=== PATIENT | female | born 1975 | race Caucasian/White ===

== ENCOUNTER 2019-05-13 18:45 | Emergency (ER) | payer BC ==
[~2019-05-13] VITALS: Ht 175.3 cm; Wt 111.1 kg
== END 2019-05-13 22:09 | disposition home or self-care (01) ==
LOC: ED 18:45
DX: S82.142A Displaced bicondylar fracture of left tibia, initial encounter for closed fracture (principal); V03.90XA Pedestrian on foot injured in collision with car, pick-up truck or van, unspecified whether traffic or nontraffic accident, initial encounter
CPT/HCPCS: 73560; 73700; 99284-25; A9270

== ENCOUNTER 2020-08-17 09:00 | Day surgery (SDC) | payer BC ==
[~2020-08-17] VITALS: Ht 175.3 cm; Wt 100.0 kg
[~2020-08-17 09:00] MED LIST: IBUPROFEN200 MG PO; MULTI COMPLETE1 EACH PO
--- NOTE | 2020-08-17 12:56 | NUR ---
08/17/20 1256 Cady Villarreal 1230 PT ARRIVED IN PACU SLEEPY WITH NO C/O'S. [address] AT BEDSIDE TALKING WITH PT. ALL QUESTIONS ANSWERED.
--- NOTE | 2020-08-17 13:21 | NUR ---
1305: PT ARRIVES TO DS RM 6 FROM PACU DROWSY. PT RATES PAIN 2/10 AND STATES THAT "MOSTLY MY THROAT HURTS." PT STATES FEELING NAUSEA AFTER MOVEMENT OF STRETCHER TO DS FROM PACU; SEE EMAR. PT PROVIDED WATER, TOLERATES SMALL SIP. PT STATES BEING COLD, MAYITO HUGGER PLACED ON WARM AND TUCKED UNDER BLANKETS. CALL LIGHT WITHIN REACH, ENCOURAGED TO USE WITH ANY NEEDS.
[2020-08-17] MEDS ORDERED: HYDROCODON-ACE1 EAC8 PO (13:44)
--- NOTE | 2020-08-17 14:16 | NUR ---
CRACKERS AND SOUP GIVEN. CALL LIGHT REMAINS WITHIN REACH.
--- NOTE | 2020-08-17 14:42 | NUR ---
PATIENT IS SITTING UP IN BED, EATING HER SOUP. SHE IS TOLERATING THAT WELL.
--- NOTE | 2020-08-18 06:29 | OR ---
[facility] [address] [place], [place] [address] Signed DATE OF OPERATION: 08/17/2020 SURGEON: Michelle Minor MD PREOPERATIVE DIAGNOSES: 1. Two lipomas, right forearm. 2. Three lipomas, right flank. POSTOPERATIVE DIAGNOSES: 1. Two lipomas, right forearm. 2. Three lipomas, right flank. PROCEDURE: Excision of five lipomas. ESTIMATED BLOOD LOSS: None. INDICATIONS: Emily is a 45-year-old female, who was asked to see me for multiple subcutaneous masses. They are most consistent with lipomas. Apparently, she has had lipomas removed in the past. She has two in the right forearm, and then three on her right flank. I explained to her that it is a bit much to do under local anesthetic. They do have some size too, one is pushing 3 cm, other probably at least 2 cm in diameter. We decided we do it over in the operating room with LMA anesthesia with the addition of local anesthetic. She understands the nature of the incisions required to remove the lipoma. She knows there is risk including, but not limited to bleeding, infection, scarring, change in contour of the skin as well as recurrent lipomas in the same or other locations. She had expressed understanding and wished to proceed. DESCRIPTION OF PROCEDURE: I met with Emily and her in the preop area. With our nurse in the room, then we marked all five lipomas. She had an additional third lipoma over the right paraspinal muscle, but intraoperatively we could not find that and we thought maybe that was just bone. After we marked the lipoma, she was taken into the operating room and placed under general LMA anesthesia. She was turned into the left lateral decubitus position with appropriate padding and monitoring. She had been given preoperative antibiotics along with subcutaneous heparin. SCDs have been utilized. We made three incisions in the right flank area and removed three lipomas. Each wound had been injected with local anesthetic. The wounds were irrigated and suctioned out until Electronically Signed By: MICHELLE MINOR MD 08/18/20 0629 PATIENT NAME: EMILY PARISI OPERATIVE REPORT DATE OF : 79 REPORT #: [id number] PHYSICIAN: MICHELLE MINOR MD PCP: CAMILLA HASSAN PA-C REPORT IS CONFIDENTIAL AND NOT TO BE RELEASED WITHOUT AUTHORIZATION [facility] [address] [place], [place] [address] Signed clear. We closed the dermis with interrupted 3-0 subcuticular Monocryl sutures. A 5-0 fast absorbing plain gut suture was used to reapproximate the skin edges. Dry gauze and tape were then applied. We had searched very carefully over the right paraspinal muscle, and we simply could find that third lipoma she had pointed out to me earlier, although we had marked three separate areas. We thought maybe this was bone from the vertebral column. After this, Emily was rotated into the supine position and her entire right upper extremity was prepped and draped in the usual sterile fashion, clear out to the fingertips. Again, we used incision over each lipoma and removed each lipoma separately. Local anesthetic had been injected into the wounds. The skin edges were reapproximated with 5-0 subcuticular Monocryl sutures. The skin edges were reapproximated with a running 5-0 fast absorbing plain gut suture. Dry gauze and tape were applied to both incisions on her right arm. After this, Emily was awakened from her anesthesia, extubated in the OR, and taken to the recovery room in stable condition. Michelle Minor MD ALB/MODL /[id number] cc: Michelle Minor MD Copies: MICHELLE MINOR MD ~ Electronically Signed By: MICHELLE MINOR MD 08/18/20 0629 PATIENT NAME: EMILY PARISI OPERATIVE REPORT DATE OF : 79 REPORT #: [id number] PHYSICIAN: MICHELLE MINOR MD PCP: CAMILLA HASSAN PA-C REPORT IS CONFIDENTIAL AND NOT TO BE RELEASED WITHOUT AUTHORIZATION
--- NOTE | 2020-08-19 11:19 | PATH ---
[facility] [address] [place], [place] [address] Signed SPECIMEN(S): A RIGHT RIBCAGE SPECIMEN(S): B RIGHT PARASPINAL LUMBAR AREA SPECIMEN(S): C RIGHT FOREARM, VOLAR SURFACE SPECIMEN(S): D RIGHT LATERAL FOREARM SPECIMEN SOURCE: A. RIGHT RIBCAGE B. RIGHT PARASPINAL LUMBAR AREA C. RIGHT FOREARM, VOLAR SURFACE D. RIGHT LATERAL FOREARM CLINICAL HISTORY: A-D) Masses/lipomas; excise right forearm lipomas x 2 right flank x 3. FINAL PATHOLOGIC DIAGNOSIS: A. Subcutaneous mass, right rib cage, excision: - Lipoma. B. Subcutaneous mass, right paraspinal lumbar area, excision: - Fragments of lobulated mature fibroadipose tissue, compatible with lipoma. C. Subcutaneous mass, volar surface right forearm, excision: - Angiolipoma. D. Subcutaneous mass, lateral right forearm, excision: - Angiolipoma. NAL:cml:[id number] MICROSCOPIC EXAMINATION: Histologic sections of all submitted blocks are examined by light microscopy. These findings, together with the gross examination, support the pathologic diagnosis. GROSS DESCRIPTION: Four specimens are received in four containers, labeled "CH." A. The specimen, labeled "CH," and designated on the requisition "right ribcage subcutaneous mass," is received in formalin and consists of a portion of yellow-duncan, fatty tissue (5.0 x 3.8 x 2.4 cm). The specimen is serially sectioned to reveal a yellow-duncan, homogenous, fatty cut surface. Oven Dumper sections are submitted in cassettes (A1-A2). B. The specimen, labeled "CH," and designated on the requisition "right paraspinal lumbar area subcutaneous mass," is received in formalin and consists of multiple fragmented pieces of yellow-duncan, fatty tissue (4.4 x 3.5 x 1.5 cm in aggregate). The pieces are serially PATIENT NAME: TY PARISI PATHOLOGY DATE OF : 79 REPORT #: [id number] PHYSICIAN: ARACELI CASEY PCP: CAMILLA HASSAN PA-C REPORT IS CONFIDENTIAL AND NOT TO BE RELEASED WITHOUT AUTHORIZATION [facility] [address] [place], [place] [address] Signed sectioned to reveal a yellow-duncan, fatty to white-duncan, fibrous cut surfaces. Oven Dumper sections are submitted cassettes (B1-B2). C. The specimen, labeled "CH," and designated on the requisition "volar surface right forearm subcutaneous mass," is received in formalin and consists of a portion of yellow-duncan, fatty tissue (2.6 x 1.9 x 1.4 cm). The specimen is serially sectioned to reveal a yellow-duncan, fatty cut surface. Oven Dumper sections are submitted in cassette (C1). D. The specimen, labeled "CH," and designated on the requisition "lateral right forearm subcutaneous mass," is received in formalin and consists of an encapsulated portion of yellow-duncan, fatty tissue (2.1 x 1.7 x 0.9 cm). The specimen is serially sectioned to reveal a yellow-duncan, homogenous, fatty cut surface. Oven Dumper sections are submitted in cassette (D1). AC (under the direct supervision of a pathologist) The Gross Description was prepared using a voice recognition system. The report was reviewed for accuracy; however, sound-alike word errors, addition and/or deletions may occur. If there is any question about this report, please contact Client Services. PERFORMING LABORATORY: The technical component was performed by [facility], [address] [place] [id number] (Bread Racker: Yari Constantino MD; CLIA# [id number]). [facility] [place] [facility] [address] (CLIA# [id number]). Diagnostician: Ruby Wynne MD Pathologist Electronically Signed 08/19/2020 Copies: ~ PATIENT NAME: TY PARISI PATHOLOGY DATE OF : 79 REPORT #: [id number] PHYSICIAN: ARACELI CASEY PCP: CAMILLA HASSAN PA-C REPORT IS CONFIDENTIAL AND NOT TO BE RELEASED WITHOUT AUTHORIZATION
== END 2020-08-17 15:30 | disposition home or self-care (01) ==
LOC: DS 09:00
PROVIDERS: ATTEND Colon & Rectal Surgery
PROC: 0JB73ZZ Excision of Back Subcutaneous Tissue and Fascia, Percutaneous Approach (ICD-10-PCS; 2020-08-17)
PROC: 0JBG3ZZ Excision of Right Lower Arm Subcutaneous Tissue and Fascia, Percutaneous Approach (ICD-10-PCS; principal; 2020-08-17 10:00)
DX: D17.21 Benign lipomatous neoplasm of skin and subcutaneous tissue of right arm (principal); D17.1 Benign lipomatous neoplasm of skin and subcutaneous tissue of trunk
CPT/HCPCS: 00400; 84703; J0690; J1100; J1644; J1885; J2001; J2250; J2405; J2704; J7121

== ENCOUNTER 2024-12-01 09:53 | Day surgery (SDC) | payer BC ==
[~2024-12-01] VITALS: Ht 175.3 cm; Wt 114.0 kg
[~2024-12-01 09:53] MED LIST changes: +HYDROCODON-ACE1 EAC8 PO; +IBLOOD GLUCOSE TEST STRIP 1 EA TEST VI PRN; +LACTATED RINGER'S 1,000 ML IV SCH; +LEVOTHYROXINE75 MC1 PO; +LIDOCAINE HCL 1% 5 ML SDV INJ ONE
[2024-12-01 10:15] VITALS: BP 122/70
[2024-12-01] MEDS ORDERED: LIDOCAINE HCL 2% 5 ML SDV ONE (11:39)
[2024-12-01 12:34] VITALS: BP 120/76
--- NOTE | 2024-12-01 13:15 | NUR ---
12/01/24 1315 Sheets,Nancy 1208 PT ARRIVED TO PACU ON 6L VIA MASK, VSS. PT ASLEEP AND VSS. RESP EVEN AND UNLABORED. 1216 PT WAKES AND IS REORIENTED TO PACU, O2 REMOVED. 1228 PT ROLLED TO BACK AND HOB INCREASED. PT SIPPING WATER AND DENEIS CONCERNS. PLAN OF CARE DISCUSSED. 1245 PT DRESSED HERSELF AND CALLED. DC INSTRUCTIONS GIVEN WITH PAPERWORK. PT DC VIA WC AND ALL QUESTIONS ANSWERED.
--- NOTE | 2024-12-02 09:05 | OR ---
[facility] [address] [place], [place] [address] Signed DATE OF OPERATION: SURGEON: Keyonna Ordonez DO PREOPERATIVE DIAGNOSIS: Colon cancer screening. POSTOPERATIVE DIAGNOSIS: Colon cancer screening with nonspecific colitis. PROCEDURE PERFORMED: Colonoscopy. ANESTHESIA: IV sedation. ESTIMATED BLOOD LOSS: None. DRAINS: None. COMPLICATIONS: None. DESCRIPTION OF PROCEDURE: The patient was brought to the GI lab, placed in supine position. After induction of IV sedation, the patient was placed in the left lateral position and padded to satisfaction of anesthesia. The Olympus video endoscope was then introduced into the rectum and directed to the length of the rectosigmoid, sigmoid colon, descending colon, transverse colon, ascending colon into the cecum under direct visualization. The colon was then insufflated and general exploration of the colonic mucosa was carried out. The ascending colon and cecum were unremarkable. No intrinsic or extrinsic masses were appreciated. Scope was brought back hepatic flexure into the transverse colon. No intrinsic or extrinsic masses noted. Scope was brought back into the splenic into the descending colon. No intrinsic or extrinsic masses were noted. Some nonspecific colitis was noted. No evidence of ulcerations. Scope was brought back into the sigmoid colon. No intrinsic or extrinsic masses were noted. Some nonspecific colitis as well. Scope was brought back to the rectosigmoid and rectum and essentially unremarkable. Nonspecific colitis noted. No other intrinsic or extrinsic masses were appreciated. The scope was then withdrawn. The patient tolerated the procedure well Electronically Signed By: KEYONNA ORDONEZ DO 12/02/24 0905 PATIENT NAME: TY PARISI OPERATIVE REPORT DATE OF : 79 REPORT #: [id number] PHYSICIAN: KEYONNA ORDONEZ DO PCP: PAMELA MCMANUS REPORT IS CONFIDENTIAL AND NOT TO BE RELEASED WITHOUT AUTHORIZATION [address] [place], [place] [address] Signed and went to recovery room in satisfactory condition. DO DOUGLAS Perdomo/MODL /[id number] Copies: ~ Electronically Signed By: KEYONNA ORDONEZ DO 12/02/24 0905 PATIENT NAME: TY PARISI OPERATIVE REPORT DATE OF : 79 REPORT #: [id number] PHYSICIAN: KEYONNA ORDONEZ DO PCP: PAMELA MCMANUS REPORT IS CONFIDENTIAL AND NOT TO BE RELEASED WITHOUT AUTHORIZATION
== END 2024-12-01 12:45 | disposition home or self-care (01) ==
LOC: DS 09:53 → OPS 09:53 → DS 10:45 → OPS 12:45 → DS 12:45
PROVIDERS: ATTEND Surgery
PROC: 0DJD8ZZ Inspection of Lower Intestinal Tract, Via Natural or Artificial Opening Endoscopic (ICD-10-PCS; principal; 2024-12-01 10:45)
DX: Z12.11 Encounter for screening for malignant neoplasm of colon (principal); K52.9 Noninfective gastroenteritis and colitis, unspecified; E03.9 Hypothyroidism, unspecified; Z79.890 Hormone replacement therapy; Z79.899 Other long term (current) drug therapy; Z91.048 Other nonmedicinal substance allergy status
CPT/HCPCS: 00811; 84703; J2003; J2704; J7121